=== PATIENT | female | born 1995 | race Two or more races ===

== ENCOUNTER 2021-09-05 10:18 | Emergency (ER) | payer SELFPAY ==
[~2021-09-05] VITALS: Ht 175.3 cm; Wt 128.0 kg
[2021-09-05 10:31] VITALS: BP 134/67
[2021-09-05] MEDS ORDERED: KETOROLAC 60 MG/2 ML VIAL. IM ONE (11:15)
--- NOTE | 2021-09-05 11:32 | RAD ---
Exam Date: 09/05/2021 11:18 AM XR FOOT_RIGHT 3 VIEWS, XR EXAM OF ANKLE_RIGHT 3VIEWS Indication: Reason: pain swelling / Spl. Instructions: / History: . FINDINGS/ IMPRESSION: Ankle mortise is intact. There is soft tissue swelling around the ankle. One millimeter calcificati on at the tip of lateral malleolus suggests an acute avulsion injury. Alignment and joint spaces are maintained. Electronically signed by: Bowen Silva MD (09/05/2021 11:30 AM) [id number]
--- NOTE | 2021-09-05 11:51 | PHYS DOC ---
Past Medical History Additional Past Medical Histor: ADHD Past Surgical History: No Surgical History Smoking Status: Current Every Day Smoker Alcohol Use: None Social History Narrative: PATIENT HAS HX OF SUBSTANCE ABUSE CURRENTLY IN TREATMENT AT [place] [facility] [place] Adult EDM: Chief Complaint: ANKLE PROBLEM HPI: HPI: Patient is a 25 year old female who presents with right ankle pain. She rates her pain 8/10 constant nonradiating. Patient states that she noticed the pain 5 days ago and it looked swollen yesterday. She denies any known injury or trauma and is able to ambulate. She has never injured the ankle before. Patient has no other complaints at this time. Review of Systems: Review of Systems: ROS negative except as mentioned in HPI. Heart Score: C/O Chest Pain: No Current Medications: Current Medications Medications (Trade) Dose Ordered Sig/Juan Start Time Stop Time Status Last Admin Dose Admin Ketorolac Tromethamine (Toradol Im) 60 mg 1X ONCE 09/05/21 11:15 09/05/21 11:16 UNV Physical Exam: PE: Constitutional: Obese, no acute distress, non-toxic appearance. Cardiovascular: Heart rate regular rhythm, no murmur. Lungs & Thorax: Bilateral breath sounds clear to auscultation. Skin: Warm, dry, no erythema, no rash. Extremities: Right ankle with mild swelling and minimal tenderness, ankle mitesh ntar flexion/dorsiflexion/rotation intact, great toe dorsiflexion plantarflexion intact. No tenderness, no cyanosis, no clubbing, ROM intact, no edema. Current Patient Data: Vital Signs: Vital Signs Date Time Temp Pulse Resp B/P (MAP) Pulse Ox O2 Delivery O2 Flow Rate FiO2 09/05/21 10:31 97.6 18 18 134/67 (89) 98 Room Air 97.6 Radiology/Procedures: Radiology/Procedures: Exam Date: 09/05/2021 11:18 AM XR FOOT_RIGHT 3 VIEWS, XR EXAM OF ANKLE_RIGHT 3VIEWS Indication: Reason: pain swelling / Spl. Instructions: / History: . FINDINGS/ IMPRESSION: Ankle mortise is intact. There is soft tissue swelling around the ankle. One millimeter calcification at the tip of lateral malleolus suggests an acute avulsion injury. Alignment and joint spaces are maintained. Electronically signed by: Bowen Silva MD (09/05/2021 11:30 AM) [id number] Course & Med Decision Making: Course & Med Decision Making Pertinent Labs and Imaging studies reviewed. (See chart for details) X-ray imaging will be ordered to rule out acute fracture dislocation. Patient understands that x-ray imaging is limited to bony injury, and cannot evaluate soft tissue injury. Patient will be provided with podiatry contact information for further evaluation management. Patient understands and is agreeable to discharge plan. Dragon Disclaimer: Dragon Disclaimer: This electronic medical record was generated, in whole or in part, using a voice recognition dictation system. Departure Departure Impression: Primary Impression: Pain and swelling of right ankle Disposition: HOME / SELF CARE / HOMELESS Condition: STABLE Referrals: NO PCP (PCP) CODY GARLAND DPM Patient Instructions: RICE - Routine Care for Injuries, [id number] Additional Instructions: As discussed, no obvious fracture or dislocation is noted on x-ray images. You may follow-up with the land surveyor assistant, Dr. Garland, for further evaluation of soft tissue injury. You may take [id number] ibuprofen for pain and inf lammation. Please return to the emergency department if your pain worsens or you develop any new symptoms. LÁZARO HATFIELD Sep 05, 2021 11:51
[2021-09-05] MEDS ORDERED: KETOROLAC 15 MG/ML VIAL. ONE (12:04)
== END 2021-09-05 12:17 | disposition home or self-care (01) ==
LOC: ER 10:18
DX: M25.571 Pain in right ankle and joints of right foot (principal); R22.41 Localized swelling, mass and lump, right lower limb; F17.200 Nicotine dependence, unspecified, uncomplicated
CPT/HCPCS: 73610; 73630; 96372; 99284; J1885